=== PATIENT | female | born 1960 | race Caucasian/White ===

== ENCOUNTER 2020-08-03 14:28 | Outpatient (CLI) | payer OTHER, SELFPAY | END 2020-08-03 14:29 | disposition home or self-care (01) | LOC: CHSLAB 14:35 | PROVIDERS: PCP Nurse Practitioner Family; Visit Provider Specialist | DX: C44.319 Basal cell carcinoma of skin of other parts of face (principal); L01.00 Impetigo, unspecified | CPT/HCPCS: 87070; 87077; 87186; 87205; 88305 ==

== ENCOUNTER 2023-12-28 14:11 | Outpatient (CLI) | payer OTHER, SELFPAY ==
[2023-12-28 14:25] LABS: Hematocrit 41.8 % (35.0-49.0); Hemoglobin 13.9 g/dL (12.0-15.0); Mean Corpuscular HGB Conc 33.3 g/dL (32-36); Mean Corpuscular Volume 90.3 fL (78.0-102.0); Platelet Count Result 207 K/mm3 (150-420); Red Blood Count 4.63 M/mm3 (4.20-5.40); Red Cell Distribution Width 12.3 % (11.6-14.4); White Blood Count 6.6 K/mm3 (4.8-10.8)
[2023-12-28 14:45] LABS: Alanine Aminotransferase 27 U/L (14-59); Albumin Level 3.8 g/dL (3.4-5.0); Alkaline Phosphatase 49 U/L (46-116); Anion Gap 9 mmol/L (4-12); Aspartate Amino Transferase 17 U/L (15-37); Bilirubin,Total 0.4 mg/dL (0.00-1.00); Blood Urea Nitrogen 10 mg/dL (7-18); Calcium 9.3 mg/dL (8.5-10.1); Carbon Dioxide 30 mmol/L (21-32); Chloride 106 mmol/L (98-108); Cholesterol 234 mg/dL (0-200); Estimated Glomerular Filt Rate > 60; Glucose 100 mg/dL (70-99); HDL Direct 48 mg/dL (40-60); LDL Cholesterol Calculated 156 mg/dL (<130); Osmolality Calculated 299 mOsm/kg (285-295); Potassium 4.4 mmol/L (3.5-5.1); Sodium 145 mmol/L (136-145); Total Protein 6.9 g/dL (6.4-8.2); Triglycerides 148 mg/dL (0-150)
[2023-12-28 14:53] LABS: Thyroid Stimulating Hormone Reflex 1.18 u/IU/mL (0.36-3.74)
[2023-12-28 15:25] LABS: Band Neutrophils Percent 0 % (0-6); Basophils Percent Manual 0 % (0-1); Eosinophils Absolute Manual 0.06 K/mm3 (0.02-0.50); Eosinophils Percent Manual 1 % (1-6); Lymphocytes Absolute Manual 2.24 K/mm3 (1.1-4.5); Lymphocytes Percent Manual 34 % (18-44); Monocytes Absolute Manual 0.39 K/mm3 (0.1-0.90); Monocytes Percent Manual 6 % (3-9); Neutrophils Absolute Manual 3.89 K/mm3 (1.7-7.2); Neutrophils Percent Manual 59 % (46-73); Platelet Estimate Adequate (Adequate); Total Cells Counted 100
== END 2023-12-28 14:12 | disposition home or self-care (01) ==
LOC: CHSLAB 14:12
PROVIDERS: PCP Family Medicine; Visit Provider Family Medicine
DX: Z00.00 Encounter for general adult medical examination without abnormal findings (principal); E03.9 Hypothyroidism, unspecified
CPT/HCPCS: 36415; 80053; 80061; 84443; 85025

== ENCOUNTER 2024-03-28 16:41 | Outpatient (CLI) | payer OTHER, SELFPAY ==
--- NOTE | 2024-04-03 12:06 | WPDHOLTEREM ---
Holter/Event Monitor Holter/Event Monitor Date of procedure: 03/28/24 Holter/Event Procedure: 48 Hr Holter Monitor Indications: Palpitations Conclusion: 1. 48 hour holter monitor on 03/28/24. 2. Underlying rhythm is sinus rhythm. HR range 57-140 bpm; average HR 90 bpm. HR at 140 bpm was at 14:18. 3. There are 6 premature supraventricular complexes. No supraventricular tachycardia. 4. There are 45 premature ventricular complexes. No ventricular tachycardia. 5. No sinoatrial or atrioventricular blocks. No significant pauses greater than 2 seconds. 6. No symptoms available for correlation.
== END 2024-03-28 16:42 | disposition home or self-care (01) ==
LOC: CHSCARD 16:41
PROVIDERS: PCP Family Medicine; Visit Provider Family Medicine
DX: R00.2 Palpitations (principal)
CPT/HCPCS: 99199; 93225; 93226

== ENCOUNTER 2024-11-10 09:25 | Emergency (ER) | payer OTHER, SELFPAY ==
[2024-11-10] VITALS (32 sets, daily range): BP systolic 127–162; BP diastolic 60–94; PULSE 70–92; RESP 10–17; TEMP 36.5–36.7; O2SAT 95–100
--- NOTE | ~2024-11-10 | XR_ITS ---
EXAMINATION: XR chest 1V portable DATE: 11/10/2024 09:47 INDICATION: Chest pain and discomfort. Heart palpitations. TECHNIQUE: AP view of the chest was obtained. COMPARISON: None FINDINGS: Calcified nodules in the left upper lung consistent with old granulomatous disease. No other airspace opacities, pulmonary edema, pleural effusion or pneumothorax. The cardiomediastinal silhouette is no rmal. Mild thoracic dextrocurvature. IMPRESSION: 1. No acute cardiopulmonary disease. Reviewed, dictated and finalized at location B.
--- NOTE | 2024-11-10 09:31 | ECG_ITS ---
Test Date: 2024-11-10 09:41:48 Measurements Intervals [place] Rate: 73 P: 76 ID: 148 QRS: 84 QRSD: 86 T: 71 QT: 366 QTc: 405 Interpretive Statements SINUS RHYTHM BASELINE ARTIFACT- I, II, III, AVR, AVL, AVF, V1-V2, V6 NORMAL ECG No previous ECG available for comparison Electronically Signed On 11-10-2024 09:49:17 CDT by Cristopher Renee D.O.
[2024-11-10 09:47] LABS: Basophils Absolute Auto 0.06 K/mm3 (0.00-0.10); Basophils Percent Auto 0.9 % (0.0-1.0); Eosinophils Absolute Auto 0.06 K/mm3 (0.02-0.50); Eosinophils Percent Auto 0.9 % (1.0-6.0); Hematocrit 42.4 % (35.0-49.0); Hemoglobin 13.7 g/dL (12.0-15.0); Immature Granulocyte Absolute 0.01 K/mm3 (0.00-0.00); Immature Granulocyte Percent A 0.1 % (0.0-0.0); Lymphocytes Absolute Auto 1.76 K/mm3 (1.10-4.50); Lymphocytes Percent Auto 25.4 % (18.0-42.0); Mean Corpuscular HGB Conc 32.3 g/dL (32-36); Mean Corpuscular Hemoglobin 29.8 pg (27.0-31.0); Mean Corpuscular Volume 92.2 fL (78.0-102.0); Mean Platelet Volume 9.7 fl (9.2-11.8); Monocytes Absolute Auto 0.47 K/mm3 (0.10-0.90); Monocytes Percent Auto 6.8 % (2.0-11.0); Neutrophils Absolute Auto 4.58 K/mm3 (1.70-7.20); Neutrophils Percent Auto 65.9 % (50.0-70.0); Platelet Count Result 239 K/mm3 (150-420); Red Cell Distribution Width 12.3 % (11.6-14.4); White Blood Count 6.9 K/mm3 (4.8-10.8)
[2024-11-10 10:00] LABS: D Dimer 0.23 mg/L (0.19-0.50)
[2024-11-10 10:11] LABS: Alanine Aminotransferase 29 U/L (14-59); Albumin Level 3.8 g/dL (3.4-5.0); Alkaline Phosphatase 75 U/L (46-116); Anion Gap 7 mmol/L (4-12); Aspartate Amino Transferase 14 U/L (15-37); Bilirubin,Total 0.4 mg/dL (0.00-1.00); Blood Urea Nitrogen 9 mg/dL (7-18); Calcium 9.5 mg/dL (8.5-10.1); Carbon Dioxide 30 mmol/L (21-32); Chloride 106 mmol/L (98-108); Estimated Glomerular Filt Rate > 60; Glucose 108 mg/dL (70-99); NT Pro B Type Natriuretic Pept 54 pg/mL (0-125); Osmolality Calculated 295 mOsm/kg (285-295); Potassium 4.3 mmol/L (3.5-5.1); Sodium 143 mmol/L (136-145); Total Protein 7.4 g/dL (6.4-8.2)
--- OUTSIDE RECORDS SUMMARY | 2024-11-10 10:11 | XMS_ITS | Clinical Summary ---
Author Organization [facility] in [place] Address [address] [place] [address] Care Team Providers Care Hand Or Machine Paster Name Role Phone No, Physician Primary Care Provider [phone] Savi TSANG MD, Shai Zapien Unavailable [phone] Allergies No known active allergies Medications cephalexin (KEFLEX) 500 mg capsuleIndicati ons:scalp Take 500 mg by mouth every morning 1 Active fluocinolone (DERMA-SMOOTH/F S) 0.01 % oilIndications: scalp Apply topically 3 (three) times a week 1 Active HYDROcodone-izabella taminophen ([place]) 5-325 mg per tabletIndicatio ns:Pain Take 1 tablet by mouth every 6 (six) hours as needed for pain 12 tablet 1 Active bacitracin 500 unit/gram ointment Apply topically 3 (three) times a day 28 g 2 1 Active Active Problems Problem Noted Date Diagnosed Date Basal cell carcinoma, forehead 12/15/2020 Overview (12/15/2020): Added automatically from request for surgery [id number] Mohs defect of forehead 12/15/2020 Overview (12/15/2020): Added automatically from request for surgery [id number] Basal cell carcinoma 11/12/2020 Surgical History Surgery Date Site/Laterality Comments HYSTERECTOMY Social History Tobacco Use Types Packs/Day Years Used Date Smoking Tobacco: Every Day Cigarettes 0.5 25.3 Started: 1999 Smokeless Tobacco: Never AUDIT-C Answer Date Recorded Q1: How often do you have a drink containing alc ohol? Monthly or less 12/22/2020 Average Number of Drinks Not on file 021 Frequency of Binge Drinking Not on file 03/2021 Comments No Sex and Gender Information Value Date Recorded Sex Assigned at Not on file Legal Sex Female 9:16 AM CDT Gender Identity Not on file Sexual Orientation Not on file Obstetrics History Last Filed Vital Signs Vital Sign Reading Time Taken Comments Blood Pressure 131/64 12/22/2020 6:40 PM CDT Pulse 65 12/22/2020 6:40 PM CDT Temperature 36.5 C (97.7 F) 12/22/2020 4:45 PM CDT Respiratory Rate 10 12/22/2020 6:40 PM CDT Oxygen Saturation 98% 12/22/2020 6:40 PM CDT Inhaled Oxygen Concentration - - Weight 49.9 kg (110 lb) 12/15/2020 2:00 PM CDT Height 160 cm (5' 3 ) 12/15/2020 2:00 PM CDT Body Mass Index 19.49 12/15/2020 2:00 PM CDT Plan of Treatment Not on file Insurance [facility] HMO/PPO Address: [address] [address] [place] [address] Care Teams Hand Or Machine Paster Relationship Specialty Start Date End Date No, Physician PCP - General 11/05/20 Shai Hou III, MD Surgeon Plastic Surgery 12/22/20
--- OUTSIDE RECORDS SUMMARY | 2024-11-10 10:11 | XMS_ITS | Referral Summary ---
Author Organization [facility] in [place] Address [address] [place] [address] Care Team Providers Care Truck Supervisor Name Role Phone No, Physician Primary Care Provider [phone] Savi TSANG MD, Shai Zapien Unavailable [phone] Allergies No known active allergies Medications cephalexin (KEFLEX) 500 mg capsuleIndicati ons:scalp Take 500 mg by mouth every morning 1 Active fluocinolone (DERMA-SMOOTH/F S) 0.01 % oilIndications: scalp Apply topically 3 (three) times a week 1 Active HYDROcodone-izabella taminophen ([place]) 5-325 mg per tabletIndicatio ns:Pain Take 1 tablet by mouth every 6 (six) hours as needed for pain 12 tablet 1 Active bacitracin 500 unit/gram ointment Apply topically 3 (three) times a day 28 g 2 1 Active Active Problems Problem Noted Date Diagnosed Date Basal cell carcinoma, forehead 12/15/2020 Overview (12/15/2020): Added automatically from request for surgery [id number] Mohs defect of forehead 12/15/2020 Overview (12/15/2020): Added automatically from request for surgery [id number] Basal cell carcinoma 11/12/2020 Social History Tobacco Use Types Packs/Day Years [...] on file Sexual Orientation Not on file Last Filed Vital Signs Vital Sign Reading [...] Plan of Treatment Not on file Insurance [address] [id number] Care Teams Truck Supervisor Relationship Specialty Start Date End Date No, Physician PCP - General 11/05/20 Shai Hou III, MD Surgeon Plastic Surgery 12/22/20
--- OUTSIDE RECORDS SUMMARY | 2024-11-10 10:11 | XMS_ITS | Clinical Summary ---
Author Organization [facility] Address [address] [place] [address] Care Team Providers Care Toll Collector Name Role Phone Skip Rea DO Primary Care Provider [phone] Allergies No known active allergies Medications No known medications Social History Tobacco Use Types Packs/Day Years Used Date Smoking Tobacco: Every Day Cigarettes Smokeless Tobacco: Never Tobacco Cessation:Ready to Q uit: Not Asked; Counseling Given: Not Answered Comments No Sex and Gender Information Value Date Recorded Sex Assigned at Not on file Legal Sex Female 8:29 AM CDT Gender Identity Not on file Sexual Orientation Not on file Last Filed Vital Signs Vital Sign Reading Time Taken Comments Blood Pressure 153/81 03/04/2024 9:30 AM CDT Pulse 73 03/04/2024 9:45 AM CDT Temperature 36.3 C (97.3 F) 03/04/2024 8:30 AM CDT Respiratory Rate 11 03/04/2024 9:45 AM CDT Oxygen Saturation 98% 03/04/2024 9:30 AM CDT Inhaled Oxygen Concentration - - Weight 54 kg (119 lb) 03/04/2024 8:30 AM CDT Height 157.5 cm (5' 2 ) 03/04/2024 8:30 AM CDT Body Mass Index 21.77 03/04/2024 8:30 AM CDT Plan of Treatment Health Maintenance Due Date Last Done Comments Cervical Cancer Screening Pa p Smear (Age 30 to 64) Every 3 Years 1960 Colorectal Cancer Screening Colonoscopy (10 Years) 1960 Annual Physical 1963 Hepatitis C 1978 DTaP, Tdap and Td Vaccines ( 1 - Tdap) 1979 Pneumococcal Vaccine: 50+ Ye ars (1 of 2 - PCV) 1979 Cervical Cancer Screening Pa p with HPV Testing (Age 30 to 64) Every 5 Years 1990 Cervical Cancer Screening with HPV 1990 Mammogram Screening 2000 Zoster Vaccines (1 of 2) 2010 COVID-19 Vaccine (2 - 2023-2 5 season) 2024 10/07/2020 RSV Immunization or 60+ Years (1 - 1-dose 75+ series) 2035 Meningococcal B Vaccine Aged Out No l onger eligible based on patient's age to complete this topic Meningococcal Vaccine Aged Out No ivory clementina eligible based on patient's age to complete this topic RSV Immunizations Under 20 Months Aged Out No longer eligible based on patient's age to complete this topic Insurance [facility] Care Teams Toll Collector Relationship Specialty Start Date End Date Skip Rea DO [address] [place] [address] PCP - General FAMILY PRACTICE 03/04/24
--- OUTSIDE RECORDS SUMMARY | 2024-11-10 10:35 | XMS_ITS | Clinical Summary ---
Author Organization [facility] Address [address] [place] [address] Care Team Providers Care Patient Access Registrar Name Role Phone Skip Rea DO Primary Care Provider [phone] Allergies No known active allergies Medications No [...] patient's age to complete this topic Insurance [facility] Care Teams Patient Access Registrar Relationship Specialty Start Date End Date Skip Rea DO [address] [place] [address] PCP - General FAMILY PRACTICE 03/04/24
--- OUTSIDE RECORDS SUMMARY | 2024-11-10 10:35 | XMS_ITS | Clinical Summary ---
Author Organization [facility] in [place] Address [address] [place] [address] Care Team Providers Care Pre Sales Technical Consultant Name Role Phone No, Physician Primary Care Provider [phone] Savi TSANG MD, Shai Zapien Unavailable [phone] Allergies No known active allergies Medications cephalexin (KEFLEX) 500 mg capsuleIndicati ons:scalp Take 500 mg by mouth every morning 1 Active fluocinolone (DERMA-SMOOTH/F S) 0.01 % oilIndications: scalp Apply topically 3 (three) times a week 1 Active HYDROcodone-izabella taminophen ([place]) 5-325 mg per tabletIndicatio ns:Pain Take 1 tablet by mouth every 6 (six) hours as needed for pain 12 tablet 1 Active bacitracin 500 unit/gram ointment Apply topically 3 (three) times a day 28 g 2 1 Active Active Problems Problem Noted Date Diagnosed Date Basal cell carcinoma, forehead 12/15/2020 Overview (12/15/2020): Added automatically from request for surgery [id number] Mohs defect of forehead 12/15/2020 Overview (12/15/2020): Added automatically from request for surgery [id number] Basal cell carcinoma 11/12/2020 Surgical History Surgery [...] Plan of Treatment Not on file Insurance Care Teams Pre Sales Technical Consultant Relationship Specialty Start Date End Date No, Physician PCP - General 11/05/20 Shai Hou III, MD Surgeon Plastic Surgery 12/22/20
--- OUTSIDE RECORDS SUMMARY | 2024-11-10 10:35 | XMS_ITS | Referral Summary ---
Author Organization [facility] in [place] Address [address] [place] [address] Care Team Providers Care Test Deskman Name Role Phone No, Physician Primary Care Provider [phone] Savi TSANG MD, Shai Zapien Unavailable [phone] Allergies No known active allergies Medications cephalexin (KEFLEX) 500 mg capsuleIndicati ons:scalp Take 500 mg by mouth every morning 1 Active fluocinolone (DERMA-SMOOTH/F S) 0.01 % oilIndications: scalp Apply topically 3 (three) times a week 1 Active HYDROcodone-izabella taminophen ([place]) 5-325 mg per tabletIndicatio ns:Pain Take 1 tablet by mouth every 6 (six) hours as needed for pain 12 tablet 1 Active bacitracin 500 unit/gram ointment Apply topically 3 (three) times a day 28 g 2 1 Active Active Problems Problem Noted Date Diagnosed Date Basal cell carcinoma, forehead 12/15/2020 Overview (12/15/2020): Added automatically from request for surgery [id number] Mohs defect of forehead 12/15/2020 Overview (12/15/2020): Added automatically from request for surgery [id number] Basal cell carcinoma 11/12/2020 Social History Tobacco [...] of Treatment Not on file Insurance [address] [id number] Care Teams Test Deskman Relationship Specialty Start Date End Date No, Physician PCP - General 11/05/20 Shai Hou III, MD Surgeon Plastic Surgery 12/22/20
--- NOTE | 2024-11-10 11:50 | ED_ITS ---
HPI - Chest Pain General Chief Complaint: Chest Pain Stated Complaint: CHEST PAIN Time Seen by Provider: 11/10/24 09:28 Source: patient Mode of arrival: ambulatory Limitations: no limitations History of Present Illness HPI narrative: Patient is a 64-year-old female with a significant past medical history that presents today for palpitations. Patient states that she was sleeping and woke up with having a bad palpitations she said she felt like her heartbeat was beating very fast and she felt like it was not out of rhythm but was beating very quickly. She has had this before she last had it 2 weeks ago. She said they did do a Holter monitor and just apparently found what she said they described as arrhythmia but did not specify what type arrhythmia. He did not know what type of arrhythmia was. However she said when she had a Holter monitor on she did not have any spells. So she most likely will need to have a Holter monitor again for a longer period of time so can catch the actual arrhythmia in action. MD complaint: other ( Arrhythmia) Pertinent past history: other ( history of arrhythmia) Onset (ago): hour(s) Timing of current episode: episodic Prior episodes: Yes Onset: during rest Relieving factors: nothing Exacerbating factors: exertion Associated symptoms: palpitations Treatment prior to arrival: none Risk Factors Coronary artery disease risk factors: none Thoracic aortic dissection risk factors: none Related Data On Oral Contraceptives: No Allergies Allergy/AdvReac Type Severity Reaction Status Date / Time No Known Allergies Allergy Verified 11/10/24 09:45 Review of Systems 2 Review of Systems: All systems reviewed & are unremarkable except as noted in HPI and below Constitutional: Constitutional: Reports as per HPI Eyes: Eyes: Reports no additional eye complaints ENT: Reports system reviewed and no additional complaints, except as documented Cardiovascular: Cardiovascular: Reports as per HPI and Reports irregular heart rhythm Respiratory: Respiratory: Reports no additional respiratory complaints Gastrointestinal: Gastrointestinal: Reports no additional gastrointestinal complaints Genitourinary: Genitourinary: Reports no additional female genitourinary complaints Musculoskeletal: Musculoskeletal: Reports no additional musculoskeletal complaints Integumentary/Breasts: Skin/Breast: Reports system reviewed and no additional complaints, except as docu Neurologic: Reports system reviewed and no additional complaints, except as documented Psychiatric: Psychiatric: Reports no additional psychiatric complaints Endocrine: Endocrine: Reports no additional endocrine complaints Hematologic/Lymphatic: Hematologic/Lymphatic: Reports no additional hematologic/lymphatic complaints Allergic/Immunologic: Allergic/Immunologic: Reports no additional allergic/immunologic complaints [facility] Past Medical History Medical History Cervical cancer Surgical History Surgical History History of partial hysterectomy Social History Social History Smoking status: Current every day smoker Alcohol intake: never Substance use: never Exam 2 Const: General: cooperative, healthy appearing and comfortable HENMT: Head: normal to inspection and No palpable skull fracture present E ars: hearing grossly normal bilaterally and external ears normal F izabella/Nose/Sinus: Normal external nose present and Normal nares present Face and sinus: normal facial exam and sinuses nontender Mouth: Yes Normal oral and palatal mucosa present and Yes lip normal Eyes: General: appearance normal, both eyes and all related structures Neck: Neck: normal visual inspection and full ROM Chest: Chest palpation & inspection: normal inspection of the chest Resp: Effort & Inspection: normal respiratory effort and able to speak in complete sentences Cardio: Jugular venous distension: no JVD Palpation: normal PMI Rate: r egular rate Rhythm: regular rhythm Heart sounds: S1 normal heart sound present and S2 normal heart sound present GI: Inspection: normal to inspection and abdominal wall ecchymosis Back/Spine/Pelvis: Back: no CVA tenderness Cervical Spine: normal cervical lordosis Skin: General skin exam: normal color and no rashes or lesions noted Neuro: General: oriented to person, oriented to place and oriented to time Extrem: General: normal to inspection and full ROM Psych: Appearance: grossly normal and well kempt Mental Status: mental status grossly normal Speech and movement: Normal speech and movement present Course Vital Signs Vital signs: Vital Signs Pulse Rate 80 11/10/24 09:28 Respiratory Rate 12 11/10/24 09:28 Blood Pressure 158/87 H 11/10/24 09:28 Pulse Oximetry 99 11/10/24 09:28 Temperature 97.7 F 11/10/24 11:45 Pulse Rate 82 11/10/24 12:31 Respiratory Rate 15 11/10/24 12:31 Blood Pressure 136/94 H 11/10/24 12:30 Pulse Oximetry 97 11/10/24 12:31 MDM - Chest Pain MDM Narrative Medical decision making narrative: patient has was seems to be like a sinus tachycardic syndrome because she says she does not really feel palpation she is feels her heart beating very fast when she has a spells. I discussed was sinus tachy syndrome is her and said that she could also be possibly having PVCs or PACs. This would be most common. And discussed with her she should get any other Holter monitor done at this time for longer amount of time so can catch an action when it happens. Will do full cardiac workup currently though she is here. Differential Diagnosis Differential diagnosis: Likely other ( Sinus tachy syndrome) Medical Records Data Attestation: I reviewed the patient's medical records. Lab Data Attestation: I reviewed the patient's lab results. 11/10/24 09:43 11/10/24 09:43 Labs: Lab Results 11/10/24 Range/Units 09:43 WBC 6.9 (4.8-10.8) K/mm3 RBC 4.60 (4.20-5.40) M/mm3 Hgb 13.7 (12.0-15.0) g/dL Hct 42.4 (35.0-49.0) % MCV 92.2 (78.0-102.0) fL MCH 29.8 (27.0-31.0) pg MCHC 32.3 (32-36) g/dL RDW 12.3 (11.6-14.4) % Plt Count 239 (150-420) K/mm3 MPV 9.7 (9.2-11.8) fl Immature Gran % (Auto) 0.1 H (0.0-0.0) % Neut % (Auto) 65.9 (50.0-70.0) % Lymph % (Auto) 25.4 (18.0-42.0) % [place] % (Auto) 6.8 (2.0-11.0) % Eos % (Auto) 0.9 L (1.0-6.0) % Baso % (Auto) 0.9 (0.0-1.0) % Lymph # (Auto) 1.76 (1.10-4.50) K/mm3 [place] # (Auto) 0.47 (0.10-0.90) K/mm3 Eos # (Auto) 0.06 (0.02-0.50) K/mm3 Baso # (Auto) 0.06 (0.00-0.10) K/mm3 Abs Immat Gran (auto) 0.01 H (0.00-0.00) K/mm3 Absolute Neuts (auto) 4.58 (1.70-7.20) K/mm3 Absolute Nucleated RBC 0.00 (0.00-0.00) K/mm3 Nucleated RBC % 0.0 (0-0.0) % D-Dimer 0.23 (0.19-0.50) mg/L Sodium 143 (136-145) mmol/L Potassium 4.3 (3.5-5.1) mmol/L Chloride 106 (98-108) mmol/L Carbon Dioxide 30 (21-32) mmol/L Anion Gap 7 (4-12) mmol/L BUN 9 (7-18) mg/dL Creatinine 0.83 (0.55-1.02) mg/dL Estim Creat Clear Calc Not Reportable Estimated GFR > 60 (59 - ) Glucose 108 H (70-99) mg/dL Calculated Osmolality 295 (285-295) mOsm/kg Calcium 9.5 (8.5-10.1) mg/dL Total Bilirubin 0.4 (0.00-1.00) mg/dL AST 14 L (15-37) U/L ALT 29 (14-59) U/L Alkaline Phosphatase 75 (46-116) U/L Troponin I 5.0 (0.00-60.4) ng/L NT-Pro-B Natriuret Pep 54 (0-125) pg/mL Total Protein 7.4 (6.4-8.2) g/dL Albumin 3.8 (3.4-5.0) g/dL Discharge Plan Discharge Clinical Impression: Sinus bradycardia-tachycardia syndrome, Arrhythmia Patient Disposition: Home Condition: Stable Instructions: Tachycardia (ED) Patient Language: Uzbek Prescriptions: No Action atorvastatin 40 mg tablet 40 mg PO DAILY Qty: 90 0RF Follow-up/Referrals: Skip Rea DO [Primary Care Provider] - Time of Disposition: 12:50
== END 2024-11-10 12:56 | disposition home or self-care (01) ==
PROVIDERS: Emergency Provider Family Medicine; PCP Family Medicine
DX: I49.5 Sick sinus syndrome (principal); I49.9 Cardiac arrhythmia, unspecified; F17.200 Nicotine dependence, unspecified, uncomplicated; Z85.41 Personal history of malignant neoplasm of cervix uteri
CPT/HCPCS: 36415; 71045; 80053; 83880; 84484; 85025; 85380; 93005; 99284

== ENCOUNTER 2024-12-23 07:46 | Outpatient (CLI) | payer OTHER, SELFPAY ==
--- NOTE | ~2024-12-23 | US_ITS ---
EXAMINATION: US abdomen limited DATE: 12/23/2024 08:22 INDICATION: Unspecified abdominal pain TECHNIQUE: Multiple grayscale and Doppler ultrasound images of the abdomen were obtained. COMPARISON: None FINDINGS: The pancreatic head and body are normal in appearance. The pancreatic tail is not visualized. The vi sualized proximal to mid aorta and inferior vena cava are normal. Liver has normal echogenicity and c ontour, with a smooth surface. No liver lesion identified. No intrahepatic biliary duct dilation susp ected. Portal venous flow was seen in the hepatopetal, normal direction and has normal Doppler wavefo rm. There are mobile shadowing gallstones within the otherwise normal-appearing gallbladder. There is a 12 x 6 mm shadowing gallstone which locally distends the distal common bile duct with a diameter o f the stone. There is however no upstream dilation of the gallbladder which measures 4 mm in diameter which is normal. Sonographic Cantu sign was reported as negative by the dye stand loader. IMPRESSION: 1. Cholelithiasis and currently nonobstructing choledocholithiasis with no current upstream intra or extra hepatic biliary ductal dilation and without findings of acute cholecystitis. Reviewed, dictated and finalized at location A. IMPRESSION: 1. Cholelithiasis and currently nonobstructing choledocholithiasis with no curr ent upstream intra or extra hepatic biliary ductal dilation and without finding s of acute cholecystitis.
--- OUTSIDE RECORDS SUMMARY | 2024-12-23 07:51 | XMS_ITS | Clinical Summary ---
Author Organization [facility] in [place] Address [address] [place] [address] Care Team Providers Care Gizzard Skin Remover Name Role Phone No, Physician Primary Care Provider [phone] Savi TSANG MD, Shai Zapien Unavailable [phone] Allergies No known active allergies Medications cephalexin (KEFLEX) 500 mg capsuleIndicati ons:scalp Take 500 mg by mouth every morning 1 Active fluocinolone (DERMA-SMOOTH/F S) 0.01 % oilIndications: scalp Apply topically 3 (three) times a week 1 Active HYDROcodone-izabella taminophen ([place]) 5-325 mg per tabletIndicatio ns:Pain Take 1 tablet by mouth every 6 (six) hours as needed for pain 12 tablet 1 Active bacitracin 500 unit/gram ointment Apply topically 3 (three) times a day 28 g 2 1 Active Active Problems Problem Noted Date Diagnosed Date Basal cell carcinoma, forehead 12/15/2020 Overview (12/15/2020): Added automatically from request for surgery [id number] Mohs defect of forehead 12/15/2020 Overview (12/15/2020): Added automatically from request for surgery [id number] Basal cell carcinoma 11/12/2020 Surgical History Surgery Date Site/Laterality Comments HYSTERECTOMY Social History Tobacco Use Types Packs/Day Years Used Date Smoking Tobacco: Every Day Cigarettes 0.5 25.4 Started: 1999 Smokeless Tobacco: Never AUDIT-C Answer [...] 2:00 PM CDT Height 160 cm (5' 3) 12/15/2020 2:00 PM CDT Body Mass Index 19.49 12/15/2020 2:00 PM CDT Plan of Treatment Not on file Insurance Care Teams Gizzard Skin Remover Relationship Specialty Start Date End Date No, Physician PCP - General 11/05/20 Shai Hou III, MD Surgeon Plastic Surgery 12/22/20
--- OUTSIDE RECORDS SUMMARY | 2024-12-23 07:51 | XMS_ITS | Referral Summary ---
Author Organization [facility] in [place] Address [address] [place] [address] Care Team Providers Care Casino Cage Manager Name Role Phone No, Physician Primary Care Provider [phone] Savi TSNAG MD, Shai Zapien Unavailable [phone] Allergies No known active allergies Medications cephalexin (KEFLEX) 500 mg capsuleIndicati ons:scalp Take 500 mg by mouth every morning 1 Active fluocinolone (DERMA-SMOOTH/F S) 0.01 % oilIndications: scalp Apply topically 3 (three) times a week 1 Active HYDROcodone-izabella taminophen ([place]) 5-325 mg per tabletIndicatio ns:Pain Take 1 tablet by mouth every 6 (six) hours as needed for pain 12 tablet 1 Active bacitracin 500 unit/gram ointment Apply topically 3 (three) times a day 28 g 2 1 Active Active Problems Problem Noted Date Diagnosed Date Basal cell carcinoma, forehead 12/15/2020 Overview (12/15/2020): Added automatically from request for surgery [id number] Mohs defect of forehead 12/15/2020 Overview (12/15/2020): Added automatically from request for surgery [id number] Basal cell carcinoma 11/12/2020 Social History Tobacco [...] of Treatment Not on file Insurance [facility] H[facility]/PP[facility] Address: [facility] [address] [place] [address] [address] [id number] Care Teams Casino Cage Manager Relationship Specialty Start Date End Date No, Physician PCP - General 11/05/20 Shai Hou III, MD Surgeon Plastic Surgery 12/22/20
--- NOTE | 2025-01-19 10:46 | WPDHOLTEREM ---
Holter/Event Monitor Holter/Event Monitor Date of procedure: 12/23/24 Holter/Event Procedure: Event Monitor Indications: Palpitations Conclusion: 1. 11 days event monitor on 12/23/24. 2. Underlying rhythm is sinus rhythm. HR range 54-132 bpm; average HR 76 bpm. 3. There are rare premature supraventricular complexes and rare supraventricular couplets. No supraventricular tachycardia. 4. There are rare ventricular complexes, rare ventricular couplets and longest ventricular trigeminy is 7.8 seconds. No ventricular tachycardia. 5. No significant pauses greater than 3 seconds. 6. Patient reports 5 episodes of symptoms of lightheadedness, irregular beats, fluttering which demonstrate sinus rhythm, HR range 69-92 bpm with 3 episodes with PVC's.
== END 2024-12-23 07:47 | disposition home or self-care (01) ==
LOC: CHSIMG 07:47
PROVIDERS: PCP Family Medicine; Visit Provider Family Medicine
DX: R00.2 Palpitations (principal); R10.9 Unspecified abdominal pain; K80.50 Calculus of bile duct without cholangitis or cholecystitis without obstruction
CPT/HCPCS: 76705; 93270

== ENCOUNTER 2025-01-07 07:44 | Outpatient (CLI) | payer OTHER, SELFPAY ==
[2025-01-07 08:52] LABS: Alanine Aminotransferase 30 U/L (6-35); Albumin Level 4.2 g/dL (3.5-5.1); Alkaline Phosphatase 53 U/L (38-126); Amylase 60 U/L (30-110); Aspartate Amino Transferase 26 U/L (14-36); Bilirubin,Total 0.5 mg/dL (0.2-1.3); Lipase 38 U/L (23-300); Total Protein 7.2 g/dL (6.3-8.2)
== END 2025-01-07 07:45 | disposition home or self-care (01) ==
LOC: ANHSURGERY 07:49
PROVIDERS: PCP Family Medicine; Visit Provider Surgery
DX: Z01.812 Encounter for preprocedural laboratory examination (principal); K80.10 Calculus of gallbladder with chronic cholecystitis without obstruction
CPT/HCPCS: 36415; 80076; 82150; 83690; 86850; 86900; 86901

== ENCOUNTER 2025-01-08 01:24 | Day surgery (SDC) | payer OTHER, SELFPAY ==
[2025-01-05 11:43] VITALS: BMI 21.9
--- NOTE | 2025-01-05 11:50 | PC.NURSE ---
Report to the Outpatient Waiting Room, entrance under the green pavilion located off [facility], at time _1000_ on date _[id number]_. Planned Procedure Time: _1200_.? Time changes happen often and if your time is changed the preop area will call you the afternoon before. - You and your visitor will be asked to self-screen and do not enter if you have any COVID symptoms. Please call surgeon if you need to reschedule. - A mask is optional within the hospital at this time. Patients may have clear liquids (water, carbonated beverages, clear teas, apple juice) until 3 hours prior to surgery with a maximum of 20 ounces. - No food from midnight until time of surgery and no smoking, or chewing tobacco (or any form of nicotine). No chewing gum, candy or mints. Take only the following medications with a SIP of water on the morning of surgery: ___Alprazolam if needed.___ DO NOT STOP ANY OF YOUR OTHER PRESCRIPTION MEDICATIONS PRIOR TO SURGERY EXCEPT THE FOLLOWING Hold all vitamins and supplements for 3 days per anesthesiologist. Medications to discontinue per physician Date to take last dose____ Please no make-up, nail serbian, hairspray, perfume, deodorant, or body powder the day of surgery.? No jewelry (including any body piercings) or valuables the day of surgery, leave them at home.? Please take a shower or bath the night before, or the morning of, surgery with an antibacterial soap.? Wear comfortable, loose fitting clothing.? - Jewelry must be removed prior to entering the operating room.? Rings and piercings that are not removed may be cut off. - The hospital will not accept responsibility for valuables.? - Please leave all valuables, including medications, at home the day of surgery. If you are going home after surgery, a licensed team truck driver must drive you home.? - NO public transportation without another adult if you receive anesthesia. - We recommend that an adult stay with you for 24 hours following discharge. - We also recommend that you do not drive, make important decision, drink alcoholic beverages, or take any drugs that were not prescribed by your health care provider for at least 24 hours after your discharge time. Follow any additional instructions given to you from your surgeon. Telephone instructions given to __Carol__and asked if any additional questions and then verbalized understanding. Patient advised to call surgeon office or pre surgery nurse liaison [phone] if any additional questions.
[2025-01-08] VITALS (13 sets, daily range): BP systolic 115–149; BP diastolic 60–79; PULSE 54–72; RESP 12–20; TEMP 36.6–36.8; O2SAT 97–100; BMI 21.3
--- NOTE | 2025-01-08 08:07 | WPDHPUPDATE1 ---
History and Physical Update Update Date/Time: 01/08/25 08:07 History and Physical has been reviewed, including an updated exam of the patient. There are NO changes in the patient's condition. Risks, benefits, and alternatives have been discussed and questions answered. Patient agrees to proceed with procedure. will setup robotic assisted cholecystectomy
[2025-01-08] MEDS: ACETAMINOPHEN 500 MG TABLET 1000 MG PO (09:30)
[2025-01-08] MEDS: INDOCYANINE GREEN 25 MG VIAL WITH DILUENT 3.75 MG IV PUSH (09:30)
[2025-01-08] MEDS: KETOROLAC 15 MG/ML VIAL (*BKC) IV PUSH (09:30)
[2025-01-08] MEDS: LACTATED RINGERS 1,000 ML 30 ML IV CONT ×2 (09:45→11:37)
--- NOTE | 2025-01-08 09:50 | P.PNAN_ITS ---
Anes - Initial Pre Proc Eval Procedure: Operation Date: 01/08/25 10:00 Proposed Procedures p Robotic Laparoscopic Cholecystectomy - Charissa Hobbs MD Date/Time: 01/08/25 09:50 Surgeon: Charissa Hobbs MD Pre Op Diagnosis: chronic cholecystitis with cholelithiasis Patient Data Age: 64 Gender: F Height: 1.57 m Weight: 54.5 kg Allergies Allergy/AdvReac Type Severity Reaction Status Date / Time No Known Allergies Allergy Verified 01/08/25 09:48 Home Medications ?Medication ?Instructions ?Recorded ?Confirmed ?Type atorvastatin 40 mg tablet (Lipitor) 40 mg PO DAILY #90 tabs 11/19/24 01/05/25 Rx alprazolam 0.25 mg tablet 0.25 mg PO TID PRN anxiety #20 tabs 12/18/24 01/05/25 Rx Patient hx anesthesia problems: none Family hx anesthesia problems: none Results Review: All pre-operative results and documents have been reviewed as part of the pre- operative evaluation. [facility]LY [facility] Past Medical History Medical History Cervical cancer Surgical History Surgical History History of partial hysterectomy Family History Family History Mother Heart disease Grandparent Heart disease Social History Social History Years smoked: 20 Smoking status: Former smoker Tobacco type: cigarettes Smoking end date: 11/12/24 Alcohol intake: never Substance use: never Substance use type: does not use Do You Feel Safe in your Home?: Yes Lack of Transportation: No Lack of Food: Never True Current Housing: I Have Housing Concerned About Future Housing: No Difficulty Paying Gas/Electric Bills: No Difficulty Paying for Meds: No Currently Unemployed: No Education: High School Diploma/GED Difficulty w/ Childcare or Family Care: No Living arrangements: with family Occupation/Education: occupation Spiritual care concerns: No Anes - Eval Final PreProcedure Day of Procedure 01/08/25 09:50 Patient weight: normal Lungs: normal air movement Airway: Mallampati scale class II Neurological: alert and oriented Last oral intake: >/= 8 hours ASA classification: II Emergent: no Anesthetic plan: proceed Anesthesia type and monitoring: general ETT and standard monitoring Results Review: All pre-operative results and documents have been reviewed as part of the pre- operative evaluation. Hyperlipidemia, ex smoker, 20 pack years (quit 3 months ago). Informed Consent: The patient's anesthetic plan and its attendant risks and benefits were discussed with the patient/family/POA. Questions were solicited and answers provided to the satisfaction of the patient/family/POA.
[2025-01-08] MEDS: ceFAZolin 2 GM/D5W 50 ML 2 GM/50 ML BAG IVPB (10:14)
[2025-01-08] MEDS: BUPIVACAINE/EPINEPHRINE 0.5% 50 ML VIAL 30 ML INFILTRATE (10:54)
--- NOTE | 2025-01-08 11:20 | S_PTH ---
PATIENT: Sara Khoury LOC: [facility] U#:[id number] AGE/SX: 64/F ROOM: RE01/08/[address]: Charissa Hobbs MD : 1960 BED: DIS: 01/08/2025 SPEC #: [id number] RECD: 01/09/25 08:23 STATUS: OMAR REQ #: [id number] LISSETH: 01/08/25 11:[address]: Charissa Hobbs DEPT: [facility] Surgical RECD BY: Renae Terry ENTERED: 01/09/25 08:24 SP TYPE: Surgical OTHR DR: Skip Rea DO Tissues: A - Gallbladder Procedures: Hematoxylin and Eosin Stain Gross and Microscopic Level 3
--- NOTE | 2025-01-08 11:23 | P.OP_ITS ---
Procedure Note - Detailed Date of Procedure 01/08/25 Pre-op Diagnosis chronic cholecystitis with cholelithiasis Post-op Diagnosis Same Procedure Performed Robotic assisted cholecystectomy Surgeon Charissa Hobbs MD Anesthesia General and Local Indications 64-year-old male presenting to the office complaining of postprandial pain upper abdominal pain, bloating. Workup, including imaging, significant for chronic cholecystitis, cholelithiasis. Findings moderate cholecystitis, cholelithiasis, intrahepatic gallbladder Description of Procedure The patient was taken to the operating room and placed in the supine position. After adequate induction of general anesthesia, the patient was prepped and draped in the normal sterile fashion. A time-out was then done to verify the patient's identity, as well as the procedure being performed. I began by making a 8 mm incision in the periumbilical region. A Veress needle was then placed in the peritoneal cavity and CO2 gas was insufflated. After adequate pneumop eritoneum was achieved, the Veress needle was removed and a 8 mm Optiview trocar was placed under direct visualization. Once into the abdominal cavity, the introducer was removed and the laparoscope was placed through this trocar site. Under direct visualization, I placed a further 8 mm port in the left mid abdomen and 2 additional 8 mm ports in the right mid abdomen. The robot was then docked to these ports sites. I then went to the console. The gallbladder was then identified and noted to be moderately inflamed and full of gallstones. I was able to place a grasper at the dome of the gallbladder and this was retracted up and over the liver. A 2nd retractor was used to grasp the infundibulum and retracted laterally. This allowed visualization and dissection of the triangle of Calot. There were some omental adhesions to the gallbladder and these were taken down with the cautery. I then began dissection around the triangle Calot. I first identified the cystic duct, I was able to visualize the entirety of the duct from its proximal insertion into the gallbladder to its distal junction with the common hepatic/common bile duct junction. I then used the firefly visualization at this point to confirm the anatomy. The proximal cystic duct was then further skeletonized, clipped, and transected. Next I visualized the cystic artery. Again the structure was skeletonized, clipped, and transected. I then again used firefly to confirm anatomy and no aberrant anatomy was noted. I then used the Bovie cautery to take down the peritoneal attachments of the gallbladder off the liver bed. This was difficult given the intrahepatic nature of the gallbladder. Once the gallbladder specimen was completely detached, an Endo pouch was placed through the left 8 mm port site and the gallbladder specimen was placed in the endo-pouch and subsequently removed. Of note, I made a cholecystostomy and decompressed the gallbladder to facilitate removal. I then re-examined the right upper quadrant. There was some mild oozing in the liver bed that was cauterized with the Bovie cautery. Hemostasis was noted in the liver bed and the clips were noted to be in good position on both the duct and the artery. No other pathology was seen in the right upper quadrant. All instruments were then removed and the robot was undocked. There was some difficulty with the removal of the specimen given the large stones and the incision had to be slightly extended to allow extraction. The abdomen was then desufflated and all ports were removed. The fascia of the extraction site was closed with an 0 Vicryl [id number] suture. All port sites were then closed with 4-0 Monocryl subcuticular suture. Dermabond was placed on each was wound. The patient tolerated the procedure well and was extubated in the operating room postop. The patient will now be transferred to the recovery room in stable condition. Estimated Blood Loss 10 Drains No Packing No Pathology Yes Complications No immediate complications Condition Stable Disposition PACU [facility] Billing Surgery - Charge Forward: Surgery Billing
[2025-01-08] MEDS: fentaNYL CITRATE INJ (*CRX) 100 MCG/2 ML VIAL 25 MCG IV PUSH ×4 (12:02→12:17)
[2025-01-08] MEDS: ONDANSETRON INJ 4 MG/2 ML VIAL IV PUSH (12:50)
[2025-01-08] MEDS: diphenhydrAMINE HCl INJ 50 MG/ML VIAL 12.5 MG IV PUSH (14:42)
== END 2025-01-08 16:00 | disposition home or self-care (01) ==
PROVIDERS: PCP Family Medicine; Visit Provider Surgery
PROC: 0FT44ZZ Resection of Gallbladder, Percutaneous Endoscopic Approach (ICD-10-PCS; CPT 47562; principal; 2025-01-08 10:00)
DX: K80.10 Calculus of gallbladder with chronic cholecystitis without obstruction (principal); Z87.891 Personal history of nicotine dependence
CPT/HCPCS: 47562; S2900; 88304; A9270; J0690; J1100; J1200; J1885; J2003; J2250; J2371; J2405; J2704; J3010; J7120

== ENCOUNTER 2025-06-05 09:55 | Emergency (ER) | payer BC, SELFPAY ==
[2025-06-05] VITALS (30 sets, daily range): BP systolic 138–156; BP diastolic 65–93; PULSE 70–89; RESP 9–23; TEMP 36.7; O2SAT 95–100
--- NOTE | ~2025-06-05 | CT_ITS ---
CT HEAD NON-CONTRAST Clinical History: dizziness/ nausea x5 days; worsening today Comparison: None Technique: Unenhanced axial images skull base to vertex Coronal, sagittal reformats CT images acquired with automatic exposure control for dose reduction DLP: 605 mGy-cm Findings: Sulci, ventricles: Unremarkable. No intracerebral hemorrhage. No evidence acute territorial infarct. No mass effect, midline shift. Bony calvarium intact. Visualized paranasal sinuses: Clear. Mastoid air cells: Clear. IMPRESSION: 1. No acute intracranial findings. Reviewed, dictated and finalized at location [facility]. [facility]
--- NOTE | 2025-06-05 09:56 | ECG_ITS ---
Test Date: 2025-06-05 10:02:05 Measurements Intervals [place] Rate: 70 P: 75 DE: 142 QRS: 93 QRSD: 93 T: 68 QT: 368 QTc: 398 Interpretive Statements SINUS RHYTHM BORDERLINE RIGHT AXIS DEVIATION [QRS AXIS > 90] INCOMPLETE RIGHT BUNDLE BRANCH BLOCK [90+ ms QRS DURATION, TERMINAL R IN V1/V2, 40+ ms S IN I/aVL/V4/V5/V6] Compared to ECG 11/10/2024 09:41:48 no changes Electronically Signed On 06-05-2025 19:09:29 DATABASE REPORTING CONSULTANT by Patricio Boothe M.D.
--- OUTSIDE RECORDS SUMMARY | 2025-06-05 09:58 | XMS_ITS | Clinical Summary ---
Author Organization [facility] in [place] Address [address] [place] [address] Care Team Providers Care Asset Management Analyst Name Role Phone No, Physician Primary Care Provider [phone] Savi TSANG MD, Shai Zapien Unavailable [phone] Allergies No known active allergies Medications cephalexin (KEFLEX) 500 mg capsuleIndicati ons:scalp Take 500 mg by mouth every morning 1 Active fluocinolone (DERMA-SMOOTH/F S) 0.01 % oilIndications: scalp Apply topically 3 (three) times a week 1 Active HYDROcodone-izabella taminophen ([place]) 5-325 mg per tabletIndicatio ns:Pain Take 1 tablet by mouth every 6 (six) hours as needed for pain 12 tablet 1 Active bacitracin 500 unit/gram ointment Apply topically 3 (three) times a day 28 g 2 1 Active Active Problems Problem Noted Date Diagnosed Date Basal cell carcinoma, forehead 12/15/2020 Overview (12/15/2020): Added automatically from request for surgery [id number] Mohs defect of forehead 12/15/2020 Overview (12/15/2020): Added automatically from request for surgery [id number] Basal cell carcinoma 11/12/2020 Surgical History Surgery Date Site/Laterality Comments HYSTERECTOMY Social History Tobacco Use Types Packs/Day Years Used Date Smoking Tobacco: Every Day Cigarettes 0.5 25.9 Started: 1999 Smokeless Tobacco: Never AUDIT-C Answer [...] Plan of Treatment Not on file Insurance ([address] [id number] Care Teams Asset Management Analyst Relationship Specialty Start Date End Date No, Physician PCP - General 11/05/20 Shai Hou III, MD Surgeon Plastic Surgery 12/22/20
--- OUTSIDE RECORDS SUMMARY | 2025-06-05 09:58 | XMS_ITS | Clinical Summary ---
Author Organization [facility] Address [facility] [place] [address] Care Team Providers Care Cellophane Casting Machine Repairer Name Role Phone Skip Rea DO Primary Care Provider [phone] Allergies No known active allergies Medications No [...] 8:30 AM CDT Height 157.5 cm (5' 2) 03/04/2024 8:30 AM CDT Body Mass Index 21.77 03/04/2024 8:30 AM CDT Plan of Treatment Health Maintenance Due Date Last Done Comments Colorectal Cancer Screening Colonoscopy (10 Years) 1960 Hepatitis C 1978 DTaP, Tdap and Td Vaccines ( 1 - Tdap) 1979 Pneumococcal Vaccine: 50+ Ye ars (1 of 2 - PCV) 1979 Mammogram Screening 2000 Zoster Vaccines (1 of 2) 2010 Dexa Scan (General) 2025 COVID-19 Vaccine (2 - 2024-2 6 season) 2025 10/07/2020 Influenza Adult (#1) 2025 RSV Immunization or 60+ Years (1 - 1-dose 75+ series) 2035 Hepatitis A Vaccines Aged Out No long er eligible based on patient's age to complete this topic Meningococcal B Vaccine Aged Out No l onger eligible based on patient's age to complete this topic Meningococcal Vaccine Aged Out No ivory clementina eligible based on patient's age to complete this topic RSV Immunizations Under 20 Months Aged Out No longer eligible based on patient's age to complete this topic Insurance [facility] Care Teams Cellophane Casting Machine Repairer Relationship Specialty Start Date End Date Skip Rea DO [address] [place] [address] PCP - General FAMILY PRACTICE 03/04/24
--- OUTSIDE RECORDS SUMMARY | 2025-06-05 10:25 | XMS_ITS | Clinical Summary ---
Author Organization [facility] in [place] Address [address] [place] [address] Care Team Providers Care Photo Engraver Name Role Phone No, Physician Primary Care Provider [phone] Savi TSANG MD, Shai Zapien Unavailable [phone] Allergies No known active allergies Medications cephalexin (KEFLEX) 500 mg capsuleIndicati ons:scalp Take 500 mg by mouth every morning 1 Active fluocinolone (DERMA-SMOOTH/F S) 0.01 % oilIndications: scalp Apply topically 3 (three) times a week 1 Active HYDROcodone-izabella taminophen ([place]) 5-325 mg per tabletIndicatio ns:Pain Take 1 tablet by mouth every 6 (six) hours as needed for pain 12 tablet 1 Active bacitracin 500 unit/gram ointment Apply topically 3 (three) times a day 28 g 2 1 Active Active Problems Problem Noted Date Diagnosed Date Basal cell carcinoma, forehead 12/15/2020 Overview (12/15/2020): Added automatically from request for surgery [id number] Mohs defect of forehead 12/15/2020 Overview (12/15/2020): Added automatically from request for surgery [id number] Basal cell carcinoma 11/12/2020 Surgical History Surgery [...] Plan of Treatment Not on file Insurance ([address] [id number] Care Teams Photo Engraver Relationship Specialty Start Date End Date No, Physician PCP - General 11/05/20 Shai Hou III, MD Surgeon Plastic Surgery 12/22/20
--- OUTSIDE RECORDS SUMMARY | 2025-06-05 10:25 | XMS_ITS | Clinical Summary ---
Author Organization [facility] Address [facility] [place] [address] Care Team Providers Care Refresh Technician Name Role Phone Skip Rea DO Primary Care Provider [phone] Allergies No known active allergies Medications No [...] patient's age to complete this topic Insurance [facility] Care Teams Refresh Technician Relationship Specialty Start Date End Date Skip Rea DO [address] [place] [address] PCP - General FAMILY PRACTICE 03/04/24
--- NOTE | 2025-06-05 10:26 | ED_ITS ---
HPI - Dizziness General Chief Complaint: Dizziness Stated Complaint: dizzy, lightheaded Source: patient Mode of arrival: ambulatory Limitations: no limitations History of Present Illness HPI Narrative: Patient is a 65-year-old female with dizziness for the past month on and off and more so today than other days. No neurological changes otherwise to her body. No focal deficits. MD elicited complaint: dizziness Pertinent past history: other (None) Onset (ago): month(s) (1) Timing: sudden onset Severity: moderate Description: sense of movement, lightheadedness, ongoing and other (This happens every morning typically and resolves by afternoon; no definite anxiety issues) Context: change in medication (She was given a beta-mary for palpitations however she did not take this medication) History of similar symptoms: No Exacerbating factors: movement/ambulation, change in body position and exertion Relieving factors: medication (Meclizine given in the ER was helpful) Associated symptoms: nausea and vomiting Associated neuro symptoms: other (None beyond the dizziness) Related Data Allergies Allergy/AdvReac Type Severity Reaction Status Date / Time No Known Allergies Allergy Verified 06/05/25 10:06 Review of Systems 2 Review of Systems: All systems reviewed & are unremarkable except as noted in HPI and below Constitutional: Constitutional: Reports no additional constitutional complaints Eyes: Eyes: Reports no additional eye complaints ENT: Reports system reviewed and no additional complaints, except as documented Cardiovascular: Cardiovascular: Reports no additional cardiovascular complaints Respiratory: Respiratory: Reports no additional respiratory complaints Gastrointestinal: Gastrointestinal: Reports no additional gastrointestinal complaints Genitourinary: Genitourinary: Reports no additional female genitourinary complaints Musculoskeletal: Musculoskeletal: Reports no additional musculoskeletal complaints Integumentary/Breasts: Skin/Breast: Reports system reviewed and no additional complaints, except as docu Neurologic: Reports system reviewed and no additional complaints, except as documented Psychiatric: Psychiatric: Reports no additional psychiatric complaints Endocrine: Endocrine: Reports no additional endocrine complaints Hematologic/Lymphatic: Hematologic/Lymphatic: Reports no additional hematologic/lymphatic complaints Allergic/Immunologic: Allergic/Immunologic: Reports no additional allergic/immunologic complaints PMFSH Past Medical History Medical History Cervical cancer Surgical History Surgical History Hx laparoscopic cholecystectomy 01/08/2025 Robotic assisted cholecystectomy History of partial hysterectomy Family History Family History Mother Heart disease Grandparent Heart disease Social History Social History Years smoked: 20 Smoking status: Former smoker Tobacco type: cigarettes Smoking end date: 11/12/24 Alcohol intake: never Substance use: never Substance use type: does not use Do You Feel Safe in your Home?: Yes Lack of Transportation: No Lack of Food: Never True Current Housing: I Have Housing Concerned About Future Housing: No Difficulty Paying Gas/Electric Bills: No Difficulty Paying for Meds: No Currently Unemployed: No Education: High School Diploma/GED Difficulty w/ Childcare or Family Care: No Living arrangements: with family Occupation/Education: occupation Spiritual care concerns: No Exam 2 Const: General: healthy appearing Nutritional Appearance: well nourished Orientation/consciousness: patient oriented x3 HENMT: Head: normal to inspection Ears: TM's normal bilaterally F izabella/Nose/Sinus: Normal external nose present Eyes: Conjunctivae: conjunctivae normal Pupils: Equal, round and reactive pupils present EOM: EOMs intact bilaterally Direct Ophthalmoscopy: no photophobia Neck: Neck: normal visual inspection, no lymphadenopathy and no meningeal signs Chest: Chest palpation & inspection: normal inspection of the chest Resp: Effort & Inspection: normal respiratory effort and not labored A uscultation: clear to auscultation bilaterally and no crackles Cardio: Rate: regular rate Rhythm: regular rhythm Heart sounds: no murmurs GI: Inspection: non-distended Auscultation: normal bowel sounds : General: Yes bladder normal to palpation Back/Spine/Pelvis: Back: no CVA tenderness Skin: General skin exam: normal color Rashes: no rashes Wounds: no wounds Neuro: General: patient oriented x3, moves all extremities, no meningeal signs, no focal motor deficits and CN's II-XI intact bilaterally Extrem: General: normal to inspection, no clubbing, cyanosis or edema and no pedal edema Psych: Mental Status: mental status grossly normal Affect: normal affect Attitude: cooperative Course Vital Signs Vital signs: Vital Signs Pulse Rate 80 06/05/25 09:55 Respiratory Rate 18 06/05/25 09:55 Blood Pressure 145/85 H 06/05/25 09:55 Pulse Oximetry 98 06/05/25 09:55 Oxygen Delivery Room Air 06/05/25 09:55 Temperature 36.7 C 06/05/25 10:02 Pulse Rate 80 06/05/25 13:47 Respiratory Rate 18 06/05/25 13:47 Blood Pressure 144/80 H 06/05/25 13:47 Pulse Oximetry 97 06/05/25 13:47 Oxygen Delivery Room Air 06/05/25 13:47 MDM - Dizziness MDM Narrative Medical decision making narrative: Patient is a 65-year-old female with dizziness and possibly vertigo situation over the past month and worse today. We will do a workup at this time. Try meclizine. The meclizine helped symptoms. Lab Data Attestation: I reviewed the patient's lab results. 06/05/25 11:32 06/05/25 11:32 Labs: Lab Results 06/05/25 06/05/25 Range/Units 11:32 12:03 WBC 11.2 H (4.8-10.8) K/mm3 RBC 4.64 (4.20-5.40) M/mm3 Hgb 13.7 (11.7-13.8) g/dL Hct 42.5 H (35.0-42.0) % MCV 91.6 (78.0-102.0) fL MCH 29.5 (27.0-31.0) pg MCHC 32.2 (32-36) g/dL RDW 12.2 (11.6-14.4) % Plt Count 267 (150-420) K/mm3 MPV 9.6 (9.2-11.8) fl Immature Gran % (Auto) 0.3 H (0.0-0.0) % Neut % (Auto) 70.2 H (50.0-70.0) % Lymph % (Auto) 22.6 (18.0-42.0) % Grand % (Auto) 5.2 (2.0-11.0) % Eos % (Auto) 0.9 L (1.0-6.0) % Baso % (Auto) 0.8 (0.0-1.0) % Lymph # (Auto) 2.53 (1.10-4.50) K/mm3 Grand # (Auto) 0.58 (0.10-0.90) K/mm3 Eos # (Auto) 0.10 (0.02-0.50) K/mm3 Baso # (Auto) 0.09 (0.00-0.10) K/mm3 Abs Immat Gran (auto) 0.03 H (0.00-0.00) K/mm3 Absolute Neuts (auto) 7.84 H (1.70-7.20) K/mm3 Absolute Nucleated RBC 0.00 (0.00-0.00) K/mm3 Nucleated RBC % 0.0 (0-0.0) % Sodium 145 (137-145) mmol/L Potassium 4.7 (3.4-5.0) mmol/L Chloride 107 (98-107) mmol/L Carbon Dioxide 29 (22-30) mmol/L Anion Gap 9 (4-12) mmol/L BUN 12 (7-17) mg/dL Creatinine 0.83 (0.7-1.0) mg/dL Estim Creat Clear Calc 47 ml/min Estimated GFR > 60 (59 - ) Glucose 106 (65-110) mg/dL Calculated Osmolality 299 H (285-295) mOsm/kg Calcium 9.8 (8.4-10.2) mg/dL Total Bilirubin 0.4 (0.2-1.3) mg/dL AST 32 (14-36) U/L ALT 35 (6-35) U/L Alkaline Phosphatase 65 (38-126) U/L Troponin I < 0.012 (0.000-0.034) ng/mL Total Protein 7.7 (6.3-8.2) g/dL Albumin 4.7 (3.5-5.1) g/dL TSH 1.030 (0.465-4.680) uIU/mL Urine Color Light yellow (Yellow) Urine Appearance Clear (Clear) Urine pH 6.5 (5.0-8.0) Ur Specific [place] 1.010 (1.010-1.020) Urine Protein Negative (Negative) Urine Glucose (UA) Negative (Negative) Urine Ketones Negative (Negative) Ur Blood (Man) Negative (Negative) Urine Nitrate Negative (Negative) Urine Bilirubin Negative (Negative) Urine Urobilinogen 0.2 (0.2-1.0) mg/dL Leukocyte Esterase Rfl Trace H (Negative) AURY/UL Urine RBC 0-2 (0-2) /hpf Urine WBC 0-3 (0-3) /hpf Ur Squamous Epith Cells Rare (Few) /hpf Urine Bacteria Trace (None) /hpf Imaging Data Attestation: I personally reviewed and interpreted this imaging study as follows: Radiologist's impression: CT scan of the head was negative for acute process ECG Data EKG #1: Attestation: I personally reviewed and interpreted this ECG as follows: ECG completion date: 06/05/25 ECG completion time: 14:30 EKG Interpretation: normal rate, sinus rhythm, no ectopy, non-specific ST changes, normal QRS, RBBB (Incomplete), normal QT and NL axis (Almost a right axis deviation) Discharge Plan Discharge Clinical Impression: Dizziness Benign paroxysmal positional vertigo Qualifiers: Laterality: unspecified laterality Qualified Code(s): H81.10 - Benign paroxysmal vertigo, unspecified ear Patient Disposition: Home Condition: Stable Instructions: Benign Paroxysmal Positional Vertigo (ED), Dizziness (ED) Patient Language: Danish Prescriptions: New meclizine 25 mg tablet 25 mg PO TID PRN (Reason: dizziness) Qty: 30 0RF No Action alprazolam 0.25 mg tablet 0.25 mg PO TID PRN (Reason: anxiety) Qty: 20 0RF metoprolol succinate 25 mg tablet extended release 24 hr 12.5 mg PO DAILY Qty: 90 0RF Follow-up/Referrals: Skip Rea DO [Primary Care Provider, [facility]] Time of Disposition: 14:08
[2025-06-05 11:36] LABS: Hematocrit 42.5 % (35.0-42.0); Hemoglobin 13.7 g/dL (11.7-13.8); Immature Granulocyte Percent A 0.3 % (0.0-0.0); Lymphocytes Absolute Auto 2.53 K/mm3 (1.10-4.50); Mean Corpuscular HGB Conc 32.2 g/dL (32-36); Mean Corpuscular Hemoglobin 29.5 pg (27.0-31.0); Mean Corpuscular Volume 91.6 fL (78.0-102.0); Nucleated Red Blood Cells Absolute Auto 0.00 K/mm3 (0.00-0.00); Nucleated Red Blood Cells Perc 0.0 % (0-0.0); Platelet Count Result 267 K/mm3 (150-420); Red Blood Count 4.64 M/mm3 (4.20-5.40); White Blood Count 11.2 K/mm3 (4.8-10.8)
[2025-06-05 11:48] LABS: Alanine Aminotransferase 35 U/L (6-35); Albumin Level 4.7 g/dL (3.5-5.1); Alkaline Phosphatase 65 U/L (38-126); Anion Gap 9 mmol/L (4-12); Aspartate Amino Transferase 32 U/L (14-36); Bilirubin,Total 0.4 mg/dL (0.2-1.3); Blood Urea Nitrogen 12 mg/dL (7-17); Calcium 9.8 mg/dL (8.4-10.2); Carbon Dioxide 29 mmol/L (22-30); Chloride 107 mmol/L (98-107); Estimated CRCL calculation 47 ml/min; Estimated Glomerular Filt Rate > 60; Glucose 106 mg/dL (65-110); Osmolality Calculated 299 mOsm/kg (285-295); Potassium 4.7 mmol/L (3.4-5.0); Sodium 145 mmol/L (137-145); Total Protein 7.7 g/dL (6.3-8.2)
[2025-06-05 12:00] LABS: Troponin I < 0.012 ng/mL (0.000-0.034)
[2025-06-05 12:08] LABS: Add Urine Microscopic? YES; Appearance Urine Clear (Clear); Glucose Urine UA Negative (Negative); Leukocyte Esterase Ur Trace LEU/UL (Negative); Nitrate Urine Negative (Negative); Specific Grav Ur 1.010 (1.010-1.020)
[2025-06-05 12:19] LABS: Thyroid Stimulating Hormone 1.030 uIU/mL (0.465-4.680)
[2025-06-05] MEDS: MECLIZINE HCL 25 MG TABLET PO (13:30)
== END 2025-06-05 14:44 | disposition home or self-care (01) ==
PROVIDERS: Emergency Provider Emergency Medicine; PCP Family Medicine
DX: H81.10 Benign paroxysmal vertigo, unspecified ear (principal); Z85.41 Personal history of malignant neoplasm of cervix uteri; Z87.891 Personal history of nicotine dependence
CPT/HCPCS: 36415; 70450; 80053; 81001; 84443; 84484; 85025; 93005; 99284; A9270